=== PATIENT | male | born 1995 | race African-American/Black ===

== ENCOUNTER 2017-06-19 18:58 | Emergency (ER) | payer SELFPAY | END 2017-06-19 21:23 | disposition left against medical advice (07) | LOC: ER 18:58 | DX: J45.909 Unspecified asthma, uncomplicated (principal); Z53.21 Procedure and treatment not carried out due to patient leaving prior to being seen by health care provider ==

== ENCOUNTER 2017-06-20 02:40 | Emergency (ER) | payer SELFPAY ==
[~2017-06-20] VITALS: Ht 170.2 cm; Wt 64.0 kg
[2017-06-20] MEDS ORDERED: ALBUTEROL (0.083%) 2.5MG/3ML NEB HHN STA (03:33)
[2017-06-20] MEDS ORDERED: PREDNISONE 20MG TABLET PO STA (03:33)
[2017-06-20] MEDS ORDERED: IPRATROPIUM BROMIDE (0.02%) 0.5MG/2.5ML NEB HHN STA (03:33)
[2017-06-20] MEDS ORDERED: ALBUTEROL (0.5%) 2.5MG/0.5ML NEB HHN ONE (03:59)
[2017-06-20] MEDS ORDERED: IPRATROPIUM/ALBUTEROL 0.5-3(2.5)MG/3ML NEB ONE (03:59)
[2017-06-20 05:26] VITALS: BP 124/76
== END 2017-06-20 05:35 | disposition home or self-care (01) ==
LOC: ER 02:40
DX: J45.901 Unspecified asthma with (acute) exacerbation (principal)
CPT/HCPCS: 94644; 99285; J7512; J7611; Z7610; 94640; J7620

== ENCOUNTER 2018-03-23 17:53 | Emergency (ER) | payer SELFPAY ==
[~2018-03-23] VITALS: Ht 167.6 cm; Wt 64.0 kg
[2018-03-23 20:36] VITALS: BP 102/64
== END 2018-03-23 20:39 | disposition home or self-care (01) ==
LOC: ER 17:53
DX: H10.9 Unspecified conjunctivitis (principal); J45.909 Unspecified asthma, uncomplicated
CPT/HCPCS: 99283